=== PATIENT | female | born 1985 | race American Indian/Alaskan Native ===

== ENCOUNTER 2017-09-04 19:24 | Outpatient (CLI) | payer MEDICAID ==
[2017-09-04] MEDS ORDERED: LACTATED RINGERS 500 ML IV ONE (19:27)
[2017-09-04 19:45] VITALS: BP 99/57
[2017-09-04 20:23] LABS: Amorphous Crystals,Urine 1+; Bilirubin,Urine NEG (Negative); Blood,Urine NEG (Negative); Color,Urine Amber (Yellow); Nitrite,Urine NEG (Negative); Protein,Urine <15 mg/dL mg/dL (Negative); Urobilinogen,Urine < 2.0 mg/dL (<2.0)
== END 2017-09-04 20:45 | disposition home or self-care (01) ==
LOC: TRG 19:24
PROVIDERS: ATTEND Obstetrics & Gynecology
DX: O47.03 False labor before 37 completed weeks of gestation, third trimester (principal); Z3A.32 32 weeks gestation of pregnancy
CPT/HCPCS: 59025; 81001

== ENCOUNTER 2017-10-16 21:38 | Inpatient (IN) | payer MEDICAID ==
[2017-10-17] MEDS ORDERED: LACTATED RINGERS 1,000 ML IV ONE (00:32)
[2017-10-17] MEDS ORDERED: NORMOSOL-R PH 7.4 1,000 ML IV ONE ×2 (01:29→04:26)
[2017-10-17] MEDS ORDERED: NACL 0.9% 1000 ML 1,000 ML IV ONE (01:30)
--- NOTE | 2017-10-17 03:07 | Ultrasound Report ---
FINAL REPORT PROCEDURE: US OB BPP WO NON-STRESS TECHNIQUE: Sonographic evaluation for breathing, movement, tone, and amniotic fluid volume was performed. CPT 52568 HISTORY: minimum variability COMPARISON: No prior studies are available for comparison. FINDINGS: Amniotic fluid volume: Normal-score 2. At least one vertical pocket > 2 cm or more in vertical axis. breathing: Normal-score 2. movement: Normal-score 2. tone: Normal. Score: 8 of 8. IMPRESSION: Normal biophysical profile.
--- NOTE | 2017-10-17 03:09 | Ultrasound Report ---
FINAL REPORT PROCEDURE: US OB LIMITED TECHNIQUE: Real-time limited sonographic examination was performed for evaluation of amniotic fluid volume, well-being for each fetus with image documentation (1 or more fetuses). CPT 51941 HISTORY: minimum variability COMPARISON: No prior studies are available for comparison. FINDINGS: There is a single fetus in a vertex presentation. heart rate 131 beats per minute. There is a normal amount of amniotic fluid. The 4 quadrant fluid volume is 21.1 centimeter. IMPRESSION: Single fetus in a vertex presentation. Four quadrant amniotic fluid volume measures 21.1 centimeter.
[2017-10-17] MEDS ORDERED: STADOL IV PRN (03:13)
[2017-10-17 03:27] LABS: Hematocrit 35.2 % (30.3-42.9); Mean Corpuscular HGB Conc 34 % (30-34); Mean Corpuscular Hemoglobin 34 pg (28-32); Mean Corpuscular Volume 100 fl (79-97); Platelet Count 338 K/mm3 (140-440); Red Blood Count 3.51 M/mm3 (3.65-5.03); Red Cell Distribution Width 12.8 % (13.2-15.2)
[2017-10-17] MEDS ORDERED: PITOCin/NS 20 UNIT/1000ML DRIP 20 UNITS/1,000 ML BAG IV SCH ×3 (04:00→15:00)
[2017-10-17] MEDS: NORMOSOL-R PH 7.4 1,000 ML IV SCH ×2 (04:57→10:08)
[2017-10-17] MEDS ORDERED: POLYCILLIN/NS 2 GM/100 ML 2 GM/100 ML BAG IV ONE (05:46)
[2017-10-17] MEDS ORDERED: ZOFRAN IV PRN ×2 (05:53→14:51)
[2017-10-17] MEDS ORDERED: BRETHINE IVP PRN (05:53)
[2017-10-17] MEDS ORDERED: MINERAL OIL PO PRN (05:53)
[2017-10-17] MEDS ORDERED: XYLOCAINE 2% INFILTRATI ONE (05:53)
[2017-10-17] MEDS ORDERED: ePHEDrine SULFATE IV PRN ×2 (05:53→09:40)
[2017-10-17] MEDS ORDERED: BRETHINE SUB-Q PRN (05:53)
[2017-10-17] MEDS ORDERED: PITOCin/NS 30 UNIT/500ML 30 UNITS/500 ML BAG IV SCH (06:00)
[2017-10-17] MEDS ORDERED: NORMOSOL-R PH 7.4 1,000 ML IV SCH (06:00)
--- NOTE | 2017-10-17 06:02 | History and Physical Report ---
History of Present Illness Date of examination: 10/17/17 Date of admission: 10/17/17 02:58 Chief complaint: Labor History of present illness: Pt is a 32yo BF EDC 10/24/17; EGA 39 0/7 weeks presents to L&D complaining of RUC's q 3-5 mins. She received care at [facility], and course has been unremarkable. records are not available, and GBS is unknown. Past History Past Medical History: no pertinent history Past Surgical History: no surgical history Family/Genetic History: none Social history: no significant social history, single - Obstetrical History : 3 Medications and Allergies Allergies Allergy/AdvReac Type Severity Reaction Status Date / Time No Known Allergies Allergy Verified 07/17/17 02:07 Home Medications Medication Instructions Recorded Confirmed Last Taken Type Pnv,Calcium 72/Iron/Folic Acid 1 tab PO DAILY 10/17/17 10/17/17 10/16/17 10:00 History [Pnv Plus Multivit Tab] Pnv,Calcium 72/Iron/Folic Acid 1 tab PO DAILY 10/17/17 10/17/17 10/16/17 10:00 History [Pnv Plus Multivit Tab] 1 Active Meds: Active Medications Butorphanol Tartrate (Stadol) 2 mg IV Q2H PRN PRN Reason: Labor Pain Last Admin: 10/17/17 04:34 Dose: 2 mg Oxytocin/Sodium Chloride (Pitocin/Ns 20 Unit/1000ml Drip) 20 units in 1,000 mls @ 125 mls/hr IV DIRECT KIA Parenteral Electrolytes (Normosol-R Ph 7.4) 1,000 mls @ 125 mls/hr IV DIRECT KIA Last Admin: 10/17/17 04:57 Dose: 125 mls/hr Ampicillin Sodium (Polycillin/Ns 2 Gm/100 Ml) 2 gm in 100 mls @ 100 mls/hr IV ONCE ONE; Protocol Stop: 10/17/17 06:45 Last Admin: 10/17/17 05:55 Dose: 100 mls/hr Ampicillin Sodium (Ampicillin/Ns 1 Gm/50 Ml) 1 gm in 50 mls @ 100 mls/hr IV Q4HR KIA; Protocol Oxytocin/Sodium Chloride (Pitocin/Ns 30 Unit/500ml) 30 units in 500 mls @ 4 mls /hr IV TITR KIA; Protocol Review of Systems All systems: negative - Vital Signs Vital signs: Vital Signs Temp Pulse Resp BP Pulse Ox 97.4 F L 87 18 125/70 99 10/16/17 22:16 10/16/17 22:16 10/16/17 22:16 10/16/17 22:16 10/16/17 22:16 Temp Pulse Resp BP Pulse Ox 97.4 F L 74 18 111/58 99 10/16/17 22:16 10/17/17 04:49 10/16/17 22:16 10/17/17 04:49 10/16/17 22:16 - Physical Exam Breasts: Positive: deferred Cardiovascular: Regular rate Lungs: Positive: Clear to auscultation Abdomen: Positive: normal appearance Genitourinary (Female): Positive: normal external genitalia Uterus: Positive: enlarged Extremities: Positive: normal - Obstetrical FHR: category 1 Uterine Contraction Monitor Mode: External Cervical Dilatation: 5.5 (per nurse) Cervical Effacement Percentage: 75 (per nurse) station: -3 Uterine Contraction Pattern: Irregular Uterine Tone Measurement Phase: Contraction Uterine Contraction Intensity: Moderate Results Result Diagrams: 10/17/17 00:00 Abnormal lab results 10/17/17 Range/Units 00:00 RBC 3.51 L (3.65-5.03) M/mm3 MCV 100 H (79-97) fl MCH 34 H (28-32) pg RDW 12.8 L (13.2-15.2) % All other labs normal. Assessment and Plan - Patient Problems (1) 39 weeks gestation of Onset Date: 10/17/17 Current Visit: Yes Status: Acute Plan to address problem: A: IUP @ 39 0/7 weeks in labor Unknown GBS P: Admit to L&D for expectant vaginal delivery IV Ampicillin Obtain records (2) Active labor at term Onset Date: 10/17/17 Current Visit: Yes Status: Acute
[2017-10-17] MEDS ORDERED: NARCAN 2 MG/2 ML IV PRN (09:40)
--- NOTE | 2017-10-17 09:40 | Anesthesia Consultation ---
Anesthesia Consult and Med Hx Date of service: 10/17/17 - Airway Anesthetic Teeth Evaluation: Good ROM Head & Neck: Adequate Mental/Hyoid Distance: Adequate Mallampati Class: Class II Intubation Access Assessment: Probably Good - Pre-Operative Health Status ASA Pre-Surgery Classification: ASA2 Proposed Anesthetic Plan: Epidural, Spinal - Pulmonary Hx Asthma: Yes COPD: No Hx Pneumonia: No - Cardiovascular System Hx Hypertension: No - Central Nervous System Hx Seizures: No Hx Psychiatric Problems: No - Endocrine Hx Renal Disease: No Hx End Stage Renal Disease: No Hx Hypothyroidism: No Hx Hyperthyroidism: No - Hematic Hx Anemia: Yes Hx Sickle Cell Disease: No - Other Systems Hx Alcohol Use: No Hx Obesity: Yes (BMI 39.1)
[2017-10-17] MEDS ORDERED: AMPICILLIN/NS 1 GM/50 ML 1 GM/50 ML BAG IV SCH (09:45)
[2017-10-17] MEDS ORDERED: fentaNYL-BUPIV 2 MCG/ML-0.125% 200 MCG/100 ML BAG EPIDURAL SCH (10:00)
[2017-10-17] MEDS: PITOCin/NS 30 UNIT/500ML 30 UNITS/500 ML BAG IV SCH ×4 (10:14→13:34)
--- NOTE | 2017-10-17 14:45 | Procedure Note ---
OB Delivery Note - Delivery Date of Delivery: 10/17/17 Surgeon: GARY UPTON Estimated blood loss: 300cc - Vaginal Delivery presentation: vertex Delivery position: OA Intrapartum events: none Delivery induction: none Delivery augmentation: pitocin Delivery monitor: external FHT, external uterine Route of delivery: Delivery placenta: spontaneous Delivery cord: 3 umbilical vessels Episiotomy: none Delivery laceration: 1st degree (clitoral) Delivery repair: vicryl Anesthesia: epidural Delivery comments: Infant delivered OA and placed on Mom's chest for [id number] bonding and delayed cord clamping. - Infant A at 1 minute: 8 at 5 minutes: 9 Infant Gender: Male (3391gms)
[2017-10-17] MEDS ORDERED: MILK OF MAGNESIA PO PRN (14:51)
[2017-10-17] MEDS ORDERED: TYLENOL PO PRN (14:51)
[2017-10-17] MEDS ORDERED: DULCOLAX PR PRN (14:51)
[2017-10-17] MEDS ORDERED: NORCO 5/325 PO PRN (14:51)
[2017-10-17] MEDS ORDERED: BENADRYL PO PRN (14:51)
[2017-10-17] MEDS ORDERED: TUCKS PAD TP PRN (14:51)
[2017-10-17] MEDS ORDERED: PHENERGAN PO PRN (14:51)
[2017-10-17] MEDS ORDERED: LANSINOH TP PRN (14:51)
[2017-10-17] MEDS ORDERED: PHENERGAN PR PRN (14:51)
[2017-10-17] MEDS ORDERED: SODIUM CHLORIDE FLUSH SYRINGE 10 ML IV NR (15:00)
[2017-10-17] MEDS: MOTRIN PO SCH (20:00)
[2017-10-17] MEDS: COLACE PO SCH (22:26)
[2017-10-17] MEDS: FEOSOL PO SCH (22:27)
[2017-10-18] MEDS: MOTRIN PO SCH ×3 (01:53→23:54)
[2017-10-18 05:25] LABS: Hematocrit 30.9 % (30.3-42.9); Hemoglobin 10.4 gm/dl (10.1-14.3)
[2017-10-18] MEDS: FEOSOL PO SCH ×2 (08:36→21:57)
[2017-10-18] MEDS: COLACE PO SCH ×2 (08:37→21:57)
--- NOTE | 2017-10-18 09:13 | Progress Note ---
Assessment and Plan - Patient Problems (1) 39 weeks gestation of Onset Date: 10/17/17 Current Visit: Yes Status: Resolved (2) Active labor at term Onset Date: 10/17/17 Current Visit: Yes Status: Resolved (3) (normal spontaneous vaginal delivery) Onset Date: 10/18/17 Current Visit: Yes Status: Resolved Plan to address problem: A: S/P - PPD #1 Doing well Asymptomatic anemia - stable P: May go home tomorrow. Subjective - Subjective Date of service: 10/18/17 Principal diagnosis: s/p - PPD #1 Interval history: Pt is feeling well without complaints. Bleeding improved. Patient reports: appetite normal, voiding normally, pain well controlled, flatus , ambulating normally, no nauseated : doing well, nursing well, bottle feeding Objective - Vital Signs Latest vital signs: Vital Signs Temp Pulse Resp BP BP Pulse Ox 10/18/17 04:00 98.6 F 64 16 102/78 10/17/17 23:30 98.6 F 66 16 110/59 10/17/17 20:00 98.6 F 77 16 110/69 10/17/17 16:40 98.3 F 77 18 97/54 10/17/17 16:17 76 108/57 10/17/17 16:16 89 110/81 10/17/17 15:37 80 116/57 116/57 10/17/17 15:33 83 106/53 106/53 10/17/17 15:28 80 108/50 108/50 10/17/17 15:18 78 114/65 114/65 10/17/17 15:03 106/75 10/17/17 15:02 77 106/75 10/17/17 14:57 77 120/75 120/75 10/17/17 14:53 81 111/55 10/17/17 14:50 97.6 F 81 18 111/55 98 10/17/17 14:48 88 114/62 10/17/17 14:33 74 110/55 10/17/17 14:23 75 119/67 10/17/17 14:18 75 118/60 10/17/17 14:13 70 108/60 10/17/17 14:08 72 109/60 10/17/17 14:02 72 107/61 03/13/18 13:57 70 105/59 18 13:53 80 113/70 18 13:48 68 111/56 18 13:42 75 108/59 18 13:37 76 108/57 18 13:33 76 112/59 18 13:28 68 117/60 18 13:23 70 113/63 18 13:17 68 113/60 18 13:12 78 111/61 18 13:09 69 116/62 18 13:02 72 115/65 10/17/17 12:58 71 112/57 10/17/17 12:55 14 10/17/17 12:53 75 115/56 10/17/17 12:48 86 99/59 10/17/17 12:42 77 118/68 10/17/17 12:37 80 117/70 10/17/17 12:33 81 117/74 10/17/17 12:27 77 115/63 10/17/17 12:22 80 116/65 18 12:19 86 112/65 10/17/17 12:14 73 114/61 18 12:07 92 H 108/70 10/17/17 12:04 81 111/68 10/17/17 11:57 82 114/56 18 11:54 76 107/64 18 11:48 78 107/58 18 11:43 77 96/54 10/17/17 11:38 73 115/57 18 11:33 73 117/65 18 11:29 74 117/73 18 11:22 80 111/64 18 11:18 77 109/56 18 11:13 80 89/57 18 11:03 83 116/53 18 10:59 76 113/60 18 10:58 84 100 /18 10:53 82 100 03//18 10:52 78 109/59 18 10:48 75 109/55 100 /18 10:44 77 114/59 03/13/18 10:43 87 68 L 10/17/17 10:38 87 98 10/17/17 10:37 86 111/55 10/17/17 10:35 83 116/54 10/17/17 10:34 100 H 85 10/17/17 10:33 93 H 193/102 98 10/17/17 10:28 86 129/61 97 Intake and Output 10/17/17 10/18/17 10/18/17 22:59 06:59 14:59 Intake Total 300 200 Balance 300 200 Intake: Oral 200 Intake, Free Water 300 Other: Total, Intake Amount 200 Estimated Blood Loss 300 - Exam Breasts: Present: deferred Cardiovascular: Present: Regular rate Lungs: Present: Clear to auscultation Abdomen: Present: normal appearance, soft Uterus: Present: normal, firm, fundal height below umbilicus Extremities: Present: normal - Labs Labs: Laboratory Tests 10/17/17 10/17/17 10/17/17 00:00 00:00 04:15 WBC 9.0 RBC 3.51 L Hgb 12.0 Hct 35.2 MCV 100 H MCH 34 H MCHC 34 RDW 12.8 L Plt Count 338 RPR Nonreactive Hep Bs Antigen Blood Type B POSITIVE Antibody Screen Negative 10/18/17 10/18/17 05:02 05:02 WBC RBC Hgb 10.4 Hct 30.9 MCV MCH MCHC RDW Plt Count RPR Hep Bs Antigen Non-reactive Blood Type Antibody Screen
--- NOTE | 2017-10-18 09:17 | Discharge Summary ---
Providers - Providers Date of Admission: 10/17/17 02:58 Date of discharge: 10/19/17 Attending physician: GARY UPTON Primary care physician: GARY UPTON Hospitalization Reason for admission: active labor, IUP at term Delivery: Episiotomy: none Laceration: 1st degree Other procedures: none complications: none Discharge diagnosis: IUP at term delivered [place] baby: male Hospital course: Unremarkable. Condition at discharge: Good Disposition: DC-01 TO HOME OR SELFCARE - Discharge Diagnoses (1) 39 weeks gestation of Status: Resolved (2) Active labor at term Status: Resolved (3) (normal spontaneous vaginal delivery) Status: Resolved Plan - Discharge Medications Prescriptions: Ferrous Sulfate [Feosol 325 MG tab] 325 mg PO BID #60 tablet Ibuprofen [Motrin 600 MG tab] 600 mg PO Q6H #30 tablet Vit-Fe Fumar-FA [ Vitamin] 1 each PO QDAY #30 tablet - Provider Discharge Summary Activity: routine, no sex for 6 weeks, no heavy lifting 4 weeks, no strenuous exercise Diet: routine Instructions: routine Additional instructions: [] Smoking cessation referral if applicable(refer to patient education folder for contact #) [] Refer to [facility] Booklet Call your doctor immediately for: * Fever > 100.5 * Heavy vaginal bleeding ( >1 pad per hour) * Severe persistent headache * Shortness of breath * Reddened, hot, painful area to leg or breast * Drainage or odor from incision. * Keep incision clean and dry at all times and follow doctor's instructions regarding bathing/showering - Follow up plan Follow up: GARY UPTON MD [Primary Care Provider] - 6 Weeks
[2017-10-18] MEDS ORDERED: PRENATAL VITAMIN PO SCH (10:00)
[2017-10-18] MEDS ORDERED: Fluarix Quad 2017-2018(36 MOS+ IM ONE (12:00)
[2017-10-18] MEDS ORDERED: M-M-R II VACCINE SUB-Q ONE (14:51)
[2017-10-18] MEDS ORDERED: BOOSTRIX IM ONE (14:51)
[2017-10-19] MEDS: MOTRIN PO SCH (05:09)
[2017-10-19] MEDS ORDERED: BOOSTRIX IM ONE (06:00)
[2017-10-19 17:39] VITALS: BP 115/66
== END 2017-10-19 18:16 | disposition home or self-care (01) | DRG 775 ==
LOC: TRG 21:38 → LD 10-17 02:58 → OB 10-17 17:22
PROVIDERS: ADMIT Obstetrics & Gynecology; ATTEND Obstetrics & Gynecology
PROC: 10E0XZZ Delivery of Products of Conception, External Approach (ICD-10-PCS; principal; 2017-10-17)
PROC: 3E0R3BZ Introduction of Anesthetic Agent into Spinal Canal, Percutaneous Approach (ICD-10-PCS; 2017-10-17)
PROC: 0HQ9XZZ Repair Perineum Skin, External Approach (ICD-10-PCS; 2017-10-17)
PROC: 00HU33Z Insertion of Infusion Device into Spinal Canal, Percutaneous Approach (ICD-10-PCS; 2017-10-17)
PROC: 3E0234Z Introduction of Serum, Toxoid and Vaccine into Muscle, Percutaneous Approach (ICD-10-PCS; 2017-10-19)
DX: O99.52 Diseases of the respiratory system complicating childbirth (principal); O99.214 Obesity complicating childbirth; E66.9 Obesity, unspecified; O70.0 First degree perineal laceration during delivery; J45.909 Unspecified asthma, uncomplicated; O90.81 Anemia of the puerperium; D64.9 Anemia, unspecified; Z3A.39 39 weeks gestation of pregnancy; Z37.0 Single live birth; Z68.39 Body mass index [BMI] 39.0-39.9, adult; Z23 Encounter for immunization
CPT/HCPCS: 36415; 59025; 76815; 76819; 85014; 85018; 85027; 86592; 86706; 86850; 86900; 86901; 90471; 90686; 90715; 96360; 99211; A6250; G0463; J0290; J0595; J2590